=== PATIENT | female | born 1960 ===

== ENCOUNTER 2023-01-24 07:01 | Day surgery (SDC) | payer OTHER | END 2023-01-24 14:15 | disposition home or self-care (01) | LOC: AMB-ENDOS 07:01 | PROVIDERS: ATTEND Colon & Rectal Surgery | DX: D12.0 Benign neoplasm of cecum (principal); D12.2 Benign neoplasm of ascending colon; D12.3 Benign neoplasm of transverse colon; R15.9 Full incontinence of feces; K57.30 Diverticulosis of large intestine without perforation or abscess without bleeding; Z20.822 Contact with and (suspected) exposure to COVID-19 ==